=== PATIENT | female | born 1950 | race Caucasian/White ===

== ENCOUNTER → 2021-04-06 | Day surgery (SDC) | payer OTHER ==
--- NOTE | 2021-04-07 12:18 | RAD REPORT ---
EXAM DESCRIPTION: Ultrasound-guided core left breast core biopsy CLINICAL HISTORY: 2 MASSES COMPARISON: No comparisons FINDINGS: Informed consent was obtained and time-out was performed. The patient's left breast was prepped and draped in the usual sterile fashion. 1% lidocaine was used for local anesthetic purposes. Utilizing aseptic technique and ultrasound guidance, an 18 gauge core biopsy device was used to sampl e the cystic lesion in the left breast at approximately the 2 o'clock position. All collected material was sent for cytology. Patient tolerated procedure well. IMPRESSION: Technically successful ultrasound-guided core biopsy of a suspicious lesion in the left breast at approximately the 2 o'clock position.
--- NOTE | 2021-04-07 12:20 | RAD REPORT ---
EXAM DESCRIPTION: US - Breast Core BX w/US Guidance - 04/06/2021 12:49 pm CLINICAL HISTORY: ICD R 92.8 COMPARISON: September 22, 2020 ultrasound TECHNIQUE: The risks, benefits alternatives to the procedure were explained to the patient and infor med consent obtained. Skin and subcutaneous tissues anesthetized with lidocaine. Under sonographic guidance, multiple 18 gauge core biopsies of the mass within the left breast obtain ed. 2 centimeter specimens taken. Tissue given to pathology. Subsequently a localizing clip was placed into the mass. Patient experienced no immediate complication IMPRESSION: Technically successful ultrasound-guided core biopsy of the solid mass at approximately the 7:30 o'clock position in the left breast. A clip was placed. The patient tolerated the procedure well.
== END ==
LOC: DS 11:41
PROVIDERS: ATTEND Surgery
DX: N63.20 Unspecified lump in the left breast, unspecified quadrant (principal)
CPT/HCPCS: 19083; 19084; 88305